=== PATIENT | male | born 1990 | race Native Hawaiian/Other Pacific Islander ===

== ENCOUNTER 2020-03-19 01:10 | Emergency (ER) | payer OTHER, BC ==
[~2020-03-19] VITALS: Ht 175.3 cm; Wt 93.0 kg
[~2020-03-19 01:10] MED LIST: CRUTCH3 USE; HYDACE10B PO; HYDACE5 PO; IBUP800 PO; Naprosyn500 MG PO; Ultram50 MG PO
[2020-03-19] MEDS ORDERED: SUMA6I SC (01:56)
== END 2020-03-19 03:35 | disposition home or self-care (01) ==
LOC: ER 01:10
DX: S61.012A Laceration without foreign body of left thumb without damage to nail, initial encounter (principal); Z91.040 Latex allergy status; Z88.5 Allergy status to narcotic agent; W26.0XXA Contact with knife, initial encounter
CPT/HCPCS: 12001; 99282-25

== ENCOUNTER 2021-03-27 07:05 | Emergency (ER) | payer OTHER, BC ==
[~2021-03-27] VITALS: Ht 175.3 cm; Wt 93.0 kg
[~2021-03-27 07:05] MED LIST changes: +SUMA6I SC
[2021-03-27] MEDS ORDERED: CEPH500 PO (07:28)
== END 2021-03-27 08:00 | disposition home or self-care (01) ==
LOC: ER 07:05
DX: L03.213 Periorbital cellulitis (principal); Z88.5 Allergy status to narcotic agent; Z91.040 Latex allergy status
CPT/HCPCS: 99282; A9270